=== PATIENT | male | born 1985 | race Caucasian/White ===

== ENCOUNTER 2021-10-04 12:42 | Emergency (ER) | payer OTHER, MEDICAID ==
[2021-10-04] MEDS ORDERED: Cyclobenzaprine 10 MG Tab PO ONE (12:45)
[2021-10-04] MEDS ORDERED: fentaNYL 100 MCG/2 ML SDV IM ONE (12:45)
[2021-10-04 12:47] VITALS: BP 130/89; PULSE 64
== END 2021-10-04 14:34 | disposition home or self-care (01) ==
LOC: JP.ED 12:42
DX: S19.9XXA Unspecified injury of neck, initial encounter (principal); V49.40XA Driver injured in collision with unspecified motor vehicles in traffic accident, initial encounter; Y92.410 Unspecified street and highway as the place of occurrence of the external cause
CPT/HCPCS: 72125; 96372; 99283; 99284; A9270; J3010

== ENCOUNTER 2024-04-29 10:18 | Emergency (ER) | payer MEDICAID, OTHER ==
[2024-04-29 10:39] LABS: BASOPHILS ABSOLUTE AUTO 0.08 K/uL (0.00-0.10); BASOPHILS PERCENT AUTO 0.9 % (0.1-1.3); EOSINOPHILS ABSOLUTE AUTO 0.21 K/uL (0.00-0.40); EOSINOPHILS PERCENT AUTO 2.4 % (0.0-5.4); HEMATOCRIT 41.1 % (38.4-49.7); HEMOGLOBIN 14.4 g/dL (12.9-16.9); IMMATURE GRAN ABSOLUTE AUTO 0.03 K/uL (0.00-0.23); IMMATURE GRAN PERCENT AUTO 0.3 % (0.0-0.7); LYMPHOCYTES ABSOLUTE AUTO 3.41 K/uL (0.8-3.3); LYMPHOCYTES PERCENT AUTO 38.4 % (11.4-47.7); MEAN CORPUSCULAR VOLUME 88.6 fL (81.4-99.0); MONOCYTES ABSOLUTE AUTO 0.56 K/uL (0.20-0.90); MONOCYTES PERCENT AUTO 6.3 % (3.3-12.6); NEUTROPHILS PERCENT AUTO 51.7 % (40.0-78.1); PLATELET COUNT,PLT 205 K/uL (130-375); RED BLOOD CELL COUNT 4.64 M/uL (4.14-5.76); WHITE BLOOD CELL COUNT,WBC 8.9 K/uL (3.2-11.0)
[2024-04-29 10:43] VITALS: BP 136/95; PULSE 57
[2024-04-29 10:58] LABS: A/G RATIO 1.4 (1.2-2.2); ALANINE AMINOTRANSFERASE,ALT 22 U/L (12-78); ALBUMIN 4.5 g/dL (3.4-5.0); ALKALINE PHOSPHATASE 82 U/L (46-116); ANION GAP 8.5 mmol/L (5.0-14.0); ASPARTATE AMNIOTRANSFERASE,AST 25 U/L (15-37); BILIRUBIN TOTAL 0.8 mg/dL (0.2-1.0); BLOOD UREA NITROGEN,BUN 13 mg/dL (7-18); CALCIUM 9.7 mg/dL (8.5-10.1); CARBON DIOXIDE,CO2 30 mmol/L (21-32); CHLORIDE,CL 102 mmol/L (100-108); CREATININE 1.1 mg/dL (0.8-1.3); EST CRCL DRUG DOSING (CG) 85.91 mL/min; ESTIMATED GFR 87 mL/min (>60); GLUCOSE RANDOM 90 mg/dL (74-106); PROTEIN TOTAL,TP 7.8 g/dL (6.4-8.2); SODIUM,NA 140 mmol/L (140-148)
[2024-04-29] MEDS: Sodium Chloride 0.9% 1,000 ML IV SCH (11:05)
[2024-04-29] MEDS: Ondansetron 4 MG/2 ML SDV IVPUSH PRN (11:07)
[2024-04-29] MEDS: HYDROmorphone 0.5 MG/0.5 ML Syringe IVPUSH PRN (11:09)
== END 2024-04-29 13:21 | disposition home or self-care (01) ==
LOC: JP.ED 10:18
DX: S06.0X0A Concussion without loss of consciousness, initial encounter (principal); W17.89XA Other fall from one level to another, initial encounter
CPT/HCPCS: 12011; 36415; 70450; 70486; 72125; 76377; 80053; 80307; 85025; 96374; 96375; 99284; J1170; J2405; J7030

== ENCOUNTER 2025-05-10 15:44 | Emergency (ER) | payer MEDICARE, MEDICAID ==
[2025-05-10 17:47] LABS: BASOPHILS ABSOLUTE AUTO 0.08 K/uL (0.00-0.10); BASOPHILS PERCENT AUTO 0.8 % (0.1-1.3); EOSINOPHILS ABSOLUTE AUTO 0.21 K/uL (0.00-0.40); EOSINOPHILS PERCENT AUTO 2.1 % (0.0-5.4); IMMATURE GRAN ABSOLUTE AUTO 0.04 K/uL (0.00-0.23); IMMATURE GRAN PERCENT AUTO 0.4 % (0.0-0.7); LYMPHOCYTES ABSOLUTE AUTO 3.58 K/uL (0.8-3.3); LYMPHOCYTES PERCENT AUTO 36.6 % (11.4-47.7); MONOCYTES ABSOLUTE AUTO 0.44 K/uL (0.20-0.90); MONOCYTES PERCENT AUTO 4.5 % (3.3-12.6); NEUTROPHILS ABSOLUTE AUTO 5.43 K/uL (1.0-7.6); NEUTROPHILS PERCENT AUTO 55.6 % (40.0-78.1); PLATELET COUNT,PLT 266 K/uL (130-375); RED BLOOD CELL COUNT 4.35 M/uL (4.14-5.76); WHITE BLOOD CELL COUNT,WBC 9.8 K/uL (3.2-11.0)
[2025-05-10 17:55] LABS: BLOOD UREA NITROGEN,BUN 5.0 mg/dL (7-18); CARBON DIOXIDE,CO2 32.0 mmol/L (21-32); CHLORIDE,CL 105.0 mmol/L (100-108); CREATININE 0.8 mg/dL (0.8-1.3); EST CRCL DRUG DOSING (CG) 116.36 mL/min; ESTIMATED GFR 114.0 mL/min (>60); GLUCOSE RANDOM 94.0 mg/dL (74-106); POTASSIUM,K 4.2 mmol/L (3.6-5.2); SODIUM,NA 143.0 mmol/L (140-148)
[2025-05-10 18:03] LABS: LACTIC ACID 0.7 mmol/L (0.4-2.0)
[2025-05-10] MEDS: Ketorolac 30 MG/ML SDV IM ONE (19:18)
[2025-05-10] MEDS: Ketorolac 30 MG/ML SDV IVPUSH ONE (19:20)
[2025-05-10 20:12] VITALS: BP 117/81; PULSE 54
== END 2025-05-10 20:10 | disposition home or self-care (01) ==
LOC: JP.ED 15:44
DX: S06.0X0A Concussion without loss of consciousness, initial encounter (principal); R56.9 Unspecified convulsions; Z79.899 Other long term (current) drug therapy; W18.39XA Other fall on same level, initial encounter; Y93.89 Activity, other specified
CPT/HCPCS: 36415; 70450; 72125; 76377; 80048; 83605; 83735; 85025; 96372; 99284; A9270; J1885